=== PATIENT | male | born 1940 | race Caucasian/White ===

== ENCOUNTER 2021-07-13 05:17 | Inpatient (IN) | payer MEDICARE ==
[~2021-07-13] VITALS: Ht 180.3 cm; Wt 92.3 kg
[2021-07-13 05:31] LABS: BASOPHIL 0.4 % (0-2); EOSINOPHIL 3.1 % (0-7); HCT 32.6 % (42.0-52.0); HGB 10.7 g/dl (13.2-18.0); LYMPHOCYTE 8.3 % (15-48); MCH 29.9 pg (25.0-31.0); MCHC 32.8 g/dL (32.0-36.0); MCV 91.1 fL (78.0-100.0); MONOCYTE 5.3 % (0-12); MPV 10.4 fL (6.0-9.5); NEUTROPHIL 82.5 % (41-80); NRBC 0; PLT 331 K/uL (150-400); RBC 3.58 M/uL (4.70-6.00); RDW 16.8 % (11.5-14.0); WBC 11.2 K/uL (4.0-10.5)
[2021-07-13 05:51] LABS: ALBUMIN 3.5 g/dL (3.4-5.0); BILIRUBIN - TOTAL 1.1 mg/dL (0.2-1.0); BUN/CREAT RATIO (CALC) 19.1 RATIO; CREATININE 1.36 mg/dL (0.67-1.17); POTASSIUM 3.1 mmol/L (3.5-5.1); TOTAL PROTEIN 7.5 g/dL (6.4-8.2)
[2021-07-13 08:21] LABS: FT4 (FREE T4) 1.5 ng/dL (0.76-1.46)
[2021-07-13 09:25] LABS: BILIRUBIN NEGATIVE (NEGATIVE); BLOOD NEGATIVE Ery/uL (NEGATIVE); CLARITY HAZY (CLEAR); COLOR YELLOW (YELLOW); GLUCOSE (U) NORMAL (NORMAL); LEUKOCYTES NEGATIVE Leu/uL (NEGATIVE); NITRITE NEGATIVE (NEGATIVE); PROTEIN NEGATIVE (NEGATIVE)
[2021-07-13] MEDS ORDERED: ASPIRIN EC81 MG PO (15:14)
[2021-07-13] MEDS ORDERED: WARFARIN SODIUM5 MG PO (15:15)
[2021-07-13] MEDS ORDERED: FERREX 150150 MG PO (15:16)
[2021-07-13] MEDS ORDERED: AMIODARONE HCL200 MG PO (15:17)
[2021-07-13] MEDS ORDERED: RANEXA500 M1 PO (15:17)
[2021-07-13] MEDS ORDERED: COREG12.5 MG PO (15:17)
[2021-07-13] MEDS ORDERED: LASIX20 MG PO (15:18)
[2021-07-13] MEDS ORDERED: ISOSORBIDE MONO60 MG PO (15:18)
[2021-07-13] MEDS ORDERED: METFORMIN HCL500 MG PO (15:19)
[2021-07-13] MEDS ORDERED: ZOCOR10 MG PO (15:20)
[2021-07-13] MEDS ORDERED: MICRO-K10 MEQ PO (15:21)
[2021-07-13] MEDS ORDERED: PACERONE200 MG PO (16:45)
[2021-07-13 17:24] LABS: INR 1.89 (0.9-1.2); PROTHROMBIN TIME 20.9 SECONDS (11.8-13.4)
[2021-07-14 07:50] LABS: INR 1.68 (0.9-1.2)
--- NOTE | 2021-07-14 16:16 | NUR ---
MET WITH PT AND DAUGHTER TO ASSESS FOR NEEDS. PER DAUGHTER PT HAS [facility]. HE ALSO HAS A WALKER, CANE AND ELEVATED TOLIET SEAT AND GRAB BARS. MR. MANCIA RESDIES WITH HIS DAUGHTER.
[2021-07-15] MEDS ORDERED: COLACE100 MG PO (12:24)
[2021-07-15] MEDS ORDERED: METAMUCIL1 DOSE PO (12:24)
[2021-07-15] MEDS ORDERED: SYNTHROID50 MCG PO (12:24)
[2021-07-15] MEDS ORDERED: AMOX TR-K CLV1 EAC4 PO (12:27)
== END 2021-07-15 13:15 | disposition home or self-care (01) | DRG 392 ==
LOC: FER 05:17 → FMS 09:41
PROVIDERS: Emergency Medicine; Internal Medicine; ADMIT Internal Medicine
DX: K52.9 Noninfective gastroenteritis and colitis, unspecified (principal); E11.9 Type 2 diabetes mellitus without complications; I48.91 Unspecified atrial fibrillation; E03.9 Hypothyroidism, unspecified; K59.09 Other constipation; Z20.822 Contact with and (suspected) exposure to COVID-19; I11.0 Hypertensive heart disease with heart failure; I50.9 Heart failure, unspecified; E87.6 Hypokalemia; E78.5 Hyperlipidemia, unspecified; D50.9 Iron deficiency anemia, unspecified; Z95.1 Presence of aortocoronary bypass graft; Z98.890 Other specified postprocedural states
CPT/HCPCS: 36415; 71045; 80053; 81003; 82962; 83690; 84439; 84443; 84484; 85025; 85610; 93005; 97162; 97530-GP; J2405; J2543; J7030; U0002

== ENCOUNTER 2021-10-13 11:02 | Inpatient (IN) | payer MEDICARE ==
[~2021-10-13] VITALS: Ht 180.3 cm; Wt 87.0 kg
[~2021-10-13 11:02] MED LIST: AMIODARONE HCL200 MG PO; AMOX TR-K CLV1 EAC4 PO; ASPIRIN EC81 MG PO; COLACE100 MG PO; COREG12.5 MG PO; FERREX 150150 MG PO; ISOSORBIDE MONO60 MG PO; LASIX20 MG PO; METAMUCIL1 DOSE PO; METFORMIN HCL500 MG PO; MICRO-K10 MEQ PO; PACERONE200 MG PO; RANEXA500 M1 PO; SYNTHROID50 MCG PO; WARFARIN SODIUM5 MG PO; ZOCOR10 MG PO
[2021-10-13 11:38] LABS: BASOPHIL 0.2 % (0-2); EOSINOPHIL 0.2 % (0-7); HCT 37.6 % (42.0-52.0); HGB 12.1 g/dl (13.2-18.0); LYMPHOCYTE 7.9 % (15-48); MCH 29.9 pg (25.0-31.0); MCHC 32.2 g/dL (32.0-36.0); MCV 92.8 fL (78.0-100.0); MONOCYTE 3.2 % (0-12); MPV 10.9 fL (6.0-9.5); NEUTROPHIL 86.7 % (41-80); NRBC 0.1; PLT 329 K/uL (150-400); RBC 4.05 M/uL (4.70-6.00); RDW 17.5 % (11.5-14.0); WBC 17.4 K/uL (4.0-10.5)
[2021-10-13 12:01] LABS: ALBUMIN 3.1 g/dL (3.4-5.0); BILIRUBIN - TOTAL 1.4 mg/dL (0.2-1.0); BUN/CREAT RATIO (CALC) 23.6 RATIO; CREATININE 1.4 mg/dL (0.67-1.17); GLOBULIN (CALCULATION) 4.1 g/dL; POTASSIUM 4.9 mmol/L (3.5-5.1); TOTAL PROTEIN 7.2 g/dL (6.4-8.2)
[2021-10-13 12:53] LABS: BILIRUBIN NEGATIVE (NEGATIVE); BLOOD 3+ Ery/uL (NEGATIVE); CLARITY CLEAR (CLEAR); COLOR YELLOW (YELLOW); GLUCOSE (U) NORMAL (NORMAL); LEUKOCYTES NEGATIVE Leu/uL (NEGATIVE); NITRITE NEGATIVE (NEGATIVE); PROTEIN 1+ mg/dL (NEGATIVE); SPECIFIC GRAVITY >=1.030 (1.001-1.030); UROBILINOGEN 0.2 mg/dL (0.2-1.0); pH 5.5 (5.0-9.0)
[2021-10-13 13:04] LABS: SQUAMOUS EPITHELIAL CELLS RARE
[2021-10-13 13:32] LABS: INR 2.86 (0.9-1.2)
[2021-10-13 13:52] LABS: CORONAVIRUS 2019 SARS-COV-2 POSITIVE (NEGATIVE); INFLUENZA A NAA NEGATIVE (NEGATIVE)
[2021-10-13] MEDS ORDERED: SENEXON-S 50-81 EACH PO (15:54)
[2021-10-13] MEDS ORDERED: BENTYL10 MG PO (15:55)
[2021-10-13 16:11] LABS: IRON % SATURATION 18.3 %SAT (20-50)
[2021-10-14 06:39] LABS: BASOPHIL 0.1 % (0-2); EOSINOPHIL 0 % (0-7); HCT 32.2 % (42.0-52.0); HGB 10.9 g/dl (13.2-18.0); LYMPHOCYTE 2.7 % (15-48); MCH 29.3 pg (25.0-31.0); MCHC 33.9 g/dL (32.0-36.0); MONOCYTE 1.8 % (0-12); MPV 11.4 fL (6.0-9.5); NRBC 0; PLT 202 K/uL (150-400); RBC 3.72 M/uL (4.70-6.00); RDW 16.7 % (11.5-14.0); WBC 12.5 K/uL (4.0-10.5)
[2021-10-14 06:43] LABS: MCV 86.6 fL (78.0-100.0); NEUTROPHIL 94.2 % (41-80)
[2021-10-14 09:34] LABS: BUN 37 mg/dL (7-18); GLUCOSE 142 mg/dL (74-106)
[2021-10-14 09:35] LABS: CREATININE 1.88 mg/dL (0.67-1.17); POTASSIUM 2.9 mmol/L (3.5-5.1)
[2021-10-14 09:36] LABS: ALBUMIN 2.4 g/dL (3.4-5.0); ALKALINE PHOSHATASE 120 U/L (46-116); ALT 3317 U/L (16-63); AST 1264 U/L (15-37); BILIRUBIN - TOTAL 1.6 mg/dL (0.2-1.0); C-REACTIVE PROTEIN > 18.00 mg/dL (<=0.90); CHLORIDE 93 mmol/L (98-107); CO2 (BICARBONATE) 31 mmol/L (21-32); GLOBULIN (CALCULATION) 4.3 g/dL; TOTAL PROTEIN 6.7 g/dL (6.4-8.2)
[2021-10-14 12:56] LABS: LACTIC ACID 4.3 mmol/L (0.4-1.9)
[2021-10-14 13:01] LABS: INR 4.86 (0.9-1.2); PROTHROMBIN TIME 44.2 SECONDS (11.8-13.4)
[2021-10-14 16:34] LABS: MAGNESIUM 2.4 mg/dL (1.8-2.4); POTASSIUM 3.3 mmol/L (3.5-5.1)
--- NOTE | 2021-10-14 23:54 | NUR ---
Patient became slightly distressed. Rales heard in [facility]. Patient felt SOA at rest despite good O2 sat 94% on 4LNC. Patient agreeable to wearing bipap.
[2021-10-15 05:44] LABS: INR 4.13 (0.9-1.2); PROTHROMBIN TIME 38.8 SECONDS (11.8-13.4)
[2021-10-15 05:46] LABS: D-DIMER 3.59 ug/mLFEU (0.00-0.41)
[2021-10-15 06:11] LABS: BASOPHIL 0.1 % (0-2); EOSINOPHIL 0 % (0-7); HCT 32.4 % (42.0-52.0); HGB 10.8 g/dl (13.2-18.0); LYMPHOCYTE 1.4 % (15-48); MCH 29.4 pg (25.0-31.0); MCHC 33.3 g/dL (32.0-36.0); MCV 88.3 fL (78.0-100.0); MONOCYTE 2.4 % (0-12); MPV 11.6 fL (6.0-9.5); NRBC 0.2; PLT 223 K/uL (150-400); RBC 3.67 M/uL (4.70-6.00); RDW 16.9 % (11.5-14.0); WBC 15.2 K/uL (4.0-10.5)
[2021-10-15 06:18] LABS: NEUTROPHIL 95.4 % (41-80)
--- NOTE | 2021-10-15 07:03 | NUR ---
PT C/O OF CHEST PAIN IN CENTER OF CHEST & REQUESTED AN ORDER FOR NITRO AND AN EKG. PT REPORTED PAIN WAS GONE BY THE TIME I WAS PULLING THE NITRO SO I DID NOT GIVE IT & THE EKG WAS BASELINE. TROPONIN WAS ORDERED.
[2021-10-15 08:10] LABS: ALBUMIN 2.7 g/dL (3.4-5.0); ALKALINE PHOSHATASE 137 U/L (46-116); AST >2000 U/L (15-37); BILIRUBIN - TOTAL 1.6 mg/dL (0.2-1.0); BUN 45 mg/dL (7-18); CHLORIDE 97 mmol/L (98-107); CO2 (BICARBONATE) 24 mmol/L (21-32); CREATININE 1.22 mg/dL (0.67-1.17); GLOBULIN (CALCULATION) 3.8 g/dL; GLUCOSE 167 mg/dL (74-106); POTASSIUM 3.7 mmol/L (3.5-5.1); TOTAL PROTEIN 6.5 g/dL (6.4-8.2)
[2021-10-15 08:11] LABS: ALT 3126 U/L (16-63)
[2021-10-16 04:34] LABS: BASOPHIL 0.1 % (0-2); EOSINOPHIL 0 % (0-7); HCT 32.2 % (42.0-52.0); HGB 10.7 g/dl (13.2-18.0); LYMPHOCYTE 2.6 % (15-48); MCH 29.2 pg (25.0-31.0); MCHC 33.2 g/dL (32.0-36.0); MONOCYTE 3.1 % (0-12); MPV 10.7 fL (6.0-9.5); NEUTROPHIL 92.8 % (41-80); NRBC 0.3; PLT 218 K/uL (150-400); RBC 3.66 M/uL (4.70-6.00); RDW 16.9 % (11.5-14.0); WBC 13.7 K/uL (4.0-10.5)
[2021-10-16 04:45] LABS: INR 2.39 (0.9-1.2); PROTHROMBIN TIME 25.2 SECONDS (11.8-13.4)
[2021-10-16 05:03] LABS: ALBUMIN 2.6 g/dL (3.4-5.0); BILIRUBIN - TOTAL 2.4 mg/dL (0.2-1.0); BUN/CREAT RATIO (CALC) 33.6 RATIO; CREATININE 1.31 mg/dL (0.67-1.17); GLOBULIN (CALCULATION) 3.8 g/dL; POTASSIUM 3.2 mmol/L (3.5-5.1); TOTAL PROTEIN 6.4 g/dL (6.4-8.2)
[2021-10-16 11:08] LABS: HBSAG SCREEN Negative (Negative); HEP A AB, IGM Negative (Negative); HEP B CORE AB, IGM Negative (Negative); HEP C VIRUS AB <0.1 (0.0-0.9)
[2021-10-17 06:01] LABS: BASOPHIL 0.1 % (0-2); EOSINOPHIL 0.1 % (0-7); HCT 32.3 % (42.0-52.0); HGB 10.6 g/dl (13.2-18.0); LYMPHOCYTE 2.1 % (15-48); MCH 28.7 pg (25.0-31.0); MCHC 32.8 g/dL (32.0-36.0); MCV 87.5 fL (78.0-100.0); MONOCYTE 2.6 % (0-12); MPV 11.3 fL (6.0-9.5); NEUTROPHIL 94.1 % (41-80); NRBC 0.2; PLT 215 K/uL (150-400); RBC 3.69 M/uL (4.70-6.00); RDW 16.9 % (11.5-14.0); WBC 16.8 K/uL (4.0-10.5)
[2021-10-17 06:40] LABS: INR 2.18 (0.9-1.2); PROTHROMBIN TIME 23.4 SECONDS (11.8-13.4)
[2021-10-17 07:16] LABS: ALBUMIN 2.5 g/dL (3.4-5.0); ALKALINE PHOSHATASE 156 U/L (46-116); ALT 2172 U/L (16-63); AST 718 U/L (15-37); BUN 40 mg/dL (7-18); BUN/CREAT RATIO (CALC) 34.8 RATIO; C-REACTIVE PROTEIN >18.00 mg/dL (<=0.90); CHLORIDE 100 mmol/L (98-107); CO2 (BICARBONATE) 29 mmol/L (21-32); CREATININE 1.15 mg/dL (0.67-1.17); GLOBULIN (CALCULATION) 3.2 g/dL; GLUCOSE 130 mg/dL (74-106); POTASSIUM 3.5 mmol/L (3.5-5.1); TOTAL PROTEIN 5.7 g/dL (6.4-8.2)
--- NOTE | 2021-10-17 17:11 | NUR ---
10/17/21 Per telephone conversation with Kaz Mazariegos, Daughter, . Mr. Mazariegos has 6 children. He lives in the home of Kaz Mazariegos. He has a rw, cane, 3in1, s. chair and electric bed bed. The PCP id [facility]. [facility] is current and were notified of admission via [facility].
[2021-10-18 06:28] LABS: BASOPHIL 0.2 % (0-2); EOSINOPHIL 0.5 % (0-7); HCT 33.5 % (42.0-52.0); HGB 10.9 g/dl (13.2-18.0); LYMPHOCYTE 1.9 % (15-48); MCH 28.9 pg (25.0-31.0); MCHC 32.5 g/dL (32.0-36.0); MCV 88.9 fL (78.0-100.0); MPV 11.2 fL (6.0-9.5); NEUTROPHIL 94.4 % (41-80); NRBC 0.3; PLT 183 K/uL (150-400); RBC 3.77 M/uL (4.70-6.00); RDW 17.3 % (11.5-14.0)
[2021-10-18 06:50] LABS: PROTHROMBIN TIME 21.8 SECONDS (11.8-13.4)
[2021-10-18 06:52] LABS: ALBUMIN 2.4 g/dL (3.4-5.0); BILIRUBIN - DIRECT 2.4 mg/dL (0.00-0.20); BILIRUBIN - TOTAL 3.5 mg/dL (0.2-1.0); BUN/CREAT RATIO (CALC) 34.3 RATIO; CREATININE 1.08 mg/dL (0.67-1.17); POTASSIUM 3.6 mmol/L (3.5-5.1); TOTAL PROTEIN 6.4 g/dL (6.4-8.2)
--- NOTE | 2021-10-18 13:44 | NUR ---
[address] PEARL FAMILY AT BEDSIDE 1329 JOSE F CONTACTED, SPOKE WITH HARPAL MONTEJO CASE #[id number] PT R/O FOR JOSE F
--- NOTE | 2021-10-18 14:00 | NUR ---
0940 IN PT ROOM TO START IV ANTIBIOTICS, PT REFUSED MEDICATION. PT STATES"I AM READY TO NOW, I AM NOT GONNA MAKE IT AND I WANT TO GO [facility] WITH MY . I'M TIRED." PT ORIENTATION EVALUATED, PT ALERT AND ORIENTED X'3. PT ALSO STATES THAT HE WOULD LIKE ME TO TURN HIS OXYGEN NOW. DR. PEARL NOTIFIED. PT DAUGHTER NOTIFIED KHALIDA MANCIA AND A VISIT APPROVED FOR HIS CHILDREN 1100 FAMILY AT PT BEDSIDE, DR. PEARL CALLED TO PT ROOM TO DISCUSS PT WISHES WITH PT AND FAMILY PT. STATED HIS WISHES TO BE MADE COMFORTABLE AND NO LONGER WANTS TO RECIEVE CARE.
--- NOTE | 2021-10-18 15:25 | NUR ---
10/18/21 Mr. Mazariegos today. [facility] was informed.
--- NOTE | 2021-10-18 16:07 | NUR ---
ARRIVED AND PICKED UP BODY
== END 2021-10-18 16:02 | disposition expired | DRG 871 ==
LOC: FER 11:02 → FTCU 13:07
PROVIDERS: Emergency Medicine; ADMIT Family Medicine
PROC: 0T9B70Z Drainage of Bladder with Drainage Device, Via Natural or Artificial Opening (ICD-10-PCS; 2021-10-13)
PROC: 5A09357 Assistance with Respiratory Ventilation, Less than 24 Consecutive Hours, Continuous Positive Airway Pressure (ICD-10-PCS; 2021-10-13)
PROC: XW0DXM6 Introduction of Baricitinib into Mouth and Pharynx, External Approach, New Technology Group 6 (ICD-10-PCS; principal; 2021-10-14)
PROC: 5A09457 Assistance with Respiratory Ventilation, 24-96 Consecutive Hours, Continuous Positive Airway Pressure (ICD-10-PCS; 2021-10-16)
PROC: 5A0935A Assistance with Respiratory Ventilation, Less than 24 Consecutive Hours, High Flow/Velocity Cannula (ICD-10-PCS; 2021-10-18)
DX: A41.89 Other specified sepsis (principal); J96.01 Acute respiratory failure with hypoxia; U07.1 COVID-19; J12.82 Pneumonia due to coronavirus disease 2019; I50.23 Acute on chronic systolic (congestive) heart failure; I21.A1 Myocardial infarction type 2; J15.9 Unspecified bacterial pneumonia; I13.0 Hypertensive heart and chronic kidney disease with heart failure and stage 1 through stage 4 chronic kidney disease, or unspecified chronic kidney disease; R18.8 Other ascites; E87.1 Hypo-osmolality and hyponatremia; N17.9 Acute kidney failure, unspecified; R65.20 Severe sepsis without septic shock; Z66 Do not resuscitate; Z51.5 Encounter for palliative care; E11.65 Type 2 diabetes mellitus with hyperglycemia; E11.22 Type 2 diabetes mellitus with diabetic chronic kidney disease; N18.30 Chronic kidney disease, stage 3 unspecified; D63.1 Anemia in chronic kidney disease; E87.6 Hypokalemia; K71.10 Toxic liver disease with hepatic necrosis, without coma; T38.0X5A Adverse effect of glucocorticoids and synthetic analogues, initial encounter; I25.5 Ischemic cardiomyopathy; E78.5 Hyperlipidemia, unspecified; I25.10 Atherosclerotic heart disease of native coronary artery without angina pectoris; I48.91 Unspecified atrial fibrillation; I49.5 Sick sinus syndrome; E03.9 Hypothyroidism, unspecified; I44.7 Left bundle-branch block, unspecified; Z95.1 Presence of aortocoronary bypass graft; Z79.82 Long term (current) use of aspirin; Z79.84 Long term (current) use of oral hypoglycemic drugs; Z79.899 Other long term (current) drug therapy; Z79.01 Long term (current) use of anticoagulants; Z85.46 Personal history of malignant neoplasm of prostate; Z95.810 Presence of automatic (implantable) cardiac defibrillator; Z95.5 Presence of coronary angioplasty implant and graft
CPT/HCPCS: 36415; 36600; 71045; 71250; 76705; 78580; 80048; 80053; 80074; 80076; 81001; 82140; 82553; 82607; 82803; 82962; 83036; 83540; 83550; 83605; 83735; 83880; 84132; 84145; 84443; 84484; 85025; 85379; 85610; 85730; 86140; 87040; 87070; 87088; 87205; 93005; 94010; 94640; 94660; 94664; 94760; 96365; 96375; A9540; J0637; J0692; J1100; J1630; J1940; J2060; J2270; J2543; J3370; J7050; U0002